=== PATIENT | male | born 1995 | race Two or more races ===

== ENCOUNTER 2022-02-05 12:47 | Emergency (ER) | payer OTHER ==
[~2022-02-05] VITALS: Ht 167.6 cm; Wt 72.0 kg
[2022-02-05] MEDS ORDERED: IBUPROFEN 600 MG TABLET PO ONE (14:15)
[2022-02-05 14:18] VITALS: BP 150/90
== END 2022-02-05 14:42 | disposition home or self-care (01) ==
LOC: EMS 12:47
DX: T63.301A Toxic effect of unspecified spider venom, accidental (unintentional), initial encounter (principal); Z98.890 Other specified postprocedural states; Y92.89 Other specified places as the place of occurrence of the external cause
CPT/HCPCS: 99282; Z7502; Z7610